=== PATIENT | male | born 1995 | race Caucasian/White ===

== ENCOUNTER 2021-05-19 13:51 | Emergency (ER) | payer OTHER ==
[~2021-05-19] VITALS: Ht 170.2 cm; Wt 65.8 kg
[2021-05-19] MEDS ORDERED: CODEINE-GUAIFE120 ML PO (16:57)
[2021-05-19] MEDS ORDERED: OSEL75CA PO (16:57)
[2021-05-19] MEDS ORDERED: ZITHROMAX200 MG PO (16:58)
== END 2021-05-19 17:26 | disposition home or self-care (01) ==
LOC: ER 13:51
DX: J10.1 Influenza due to other identified influenza virus with other respiratory manifestations (principal); A49.3 Mycoplasma infection, unspecified site; Z20.822 Contact with and (suspected) exposure to COVID-19